=== PATIENT | male | born 1990 | race Caucasian/White ===

== ENCOUNTER 2017-05-29 00:16 | Emergency (ER) | payer BC ==
[2017-05-29 00:31] VITALS: BP 128/74; PULSE 60; TEMP 98.6; BMI 25.1
[2017-05-29] MEDS ORDERED: IBUPROFEN 600 MG TABLET (FP) PO ONE ×2 (03:22→03:30)
[2017-05-29] MEDS ORDERED: METHOCARBAMOL 500 MG TABLET PO ONE (03:22)
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
[2017-05-29] MEDS ORDERED: METHOCARBAMOL 500 MG TABLET ONE ×2 (03:30→03:34)
== END 2017-05-29 06:07 | disposition home or self-care (01) ==
LOC: JER 00:16
DX: S29.012A Strain of muscle and tendon of back wall of thorax, initial encounter (principal); X50.1XXA Overexertion from prolonged static or awkward postures, initial encounter; Y93.89 Activity, other specified; Y92.89 Other specified places as the place of occurrence of the external cause
CPT/HCPCS: 72070-TC; 72100-TC; 99282-25